=== PATIENT | female | born 1985 | race Two or more races ===

== ENCOUNTER 2023-10-30 21:42 | Emergency (ER) | payer OTHER ==
[~2023-10-30] VITALS: Ht 170.2 cm; Wt 100.0 kg
[2023-10-31] MEDS: ACETAMINOPHEN 325 MG TAB PO ONE (01:32)
[2023-10-31] MEDS: ONDANSETRON ODT 4 MG TAB PO ONE (01:33)
[2023-10-31 01:47] VITALS: BP 139/74; PULSE 84; RESP 20; TEMP 98.4
[2023-10-31 01:48] VITALS: O2SAT 98
[2023-10-31] MEDS ORDERED: IBUP-1455 PO (01:58)
[2023-10-31] MEDS ORDERED: CYCL-611 PO (01:58)
== END 2023-10-31 02:19 | disposition home or self-care (01) ==
LOC: EDBD 21:42 → ER 21:42
DX: S13.9XXA Sprain of joints and ligaments of unspecified parts of neck, initial encounter (principal); S23.3XXA Sprain of ligaments of thoracic spine, initial encounter; S00.03XA Contusion of scalp, initial encounter; V43.52XA Car driver injured in collision with other type car in traffic accident, initial encounter; Y93.89 Activity, other specified; Y92.89 Other specified places as the place of occurrence of the external cause; Y99.8 Other external cause status
CPT/HCPCS: 70450; 72125